=== PATIENT | female | born 1995 | race Caucasian/White ===

== ENCOUNTER 2025-03-12 18:20 | Emergency (ER) | payer BC ==
[2025-03-12] MEDS ORDERED: Sodium Chloride 0.9% 10 ML Syringe FLUSH PRN (18:53)
[2025-03-12] MEDS ORDERED: Naloxone 2 MG/2 ML Syringe IVPUSH PRN (18:57)
[2025-03-12] MEDS: HYDROmorphone 2 MG/ML Syringe IVPUSH ONE (19:08)
[2025-03-12] MEDS: Ondansetron 4 MG/2 ML SDV IVPUSH ONE (19:30)
[2025-03-12] MEDS ORDERED: Acetaminophen/HYDROcodone 325-5 MG Tab ONE (20:00)
== END 2025-03-12 20:40 | disposition home or self-care (01) ==
LOC: LB.ED 18:20
DX: R10.30 Lower abdominal pain, unspecified (principal); Z79.899 Other long term (current) drug therapy
CPT/HCPCS: 74176; 96374; 96375; 99283; 99284; A9270; J1171; J2405; 36415; 80053; 81001; 81025; 85025

== ENCOUNTER 2025-03-30 11:27 | Emergency (ER) | payer BC ==
[2025-03-30] MEDS ORDERED: Sodium Chloride 0.9% 10 ML Syringe FLUSH PRN (11:54)
[2025-03-30] MEDS: Ondansetron 4 MG/2 ML SDV IVPUSH ONE (12:02)
[2025-03-30] MEDS: Ketorolac 15 MG/ML SDV IVPUSH SCH (12:02)
[2025-03-30 12:15] LABS: BASOPHILS ABSOLUTE AUTO 0.01 K/uL (0.02-0.10); BASOPHILS PERCENT AUTO 0.1 % (0.0-0.5); EOSINOPHILS ABSOLUTE AUTO 0.11 K/uL (0.04-0.40); EOSINOPHILS PERCENT AUTO 1.6 % (1.0-5.0); LYMPHOCYTES ABSOLUTE AUTO 1.67 K/uL (1.50-4.00); LYMPHOCYTES PERCENT AUTO 24.2 % (20.0-40.0); MEAN PLATELET VOLUME 11.4 fL (6.0-10.0); MONOCYTES ABSOLUTE AUTO 0.34 K/uL (0.20-0.80); MONOCYTES PERCENT AUTO 4.9 % (3.0-10.0); NEUTROPHILS ABSOLUTE AUTO 4.77 K/uL (2.00-7.50); NEUTROPHILS PERCENT AUTO 69.2 % (45.0-70.0); PLATELET COUNT,PLT 303 K/uL (150-500); RED BLOOD CELL COUNT 4.14 M/uL (3.80-5.80); RED CELL DISTRIBUTION WIDTH 11.9 % (11.0-16.0); WHITE BLOOD CELL COUNT,WBC 6.9 K/uL (4.0-11.0)
[2025-03-30 12:21] LABS: APPEARANCE,URINE CLEAR (CLEAR); GLUCOSE,URINE NEGATIVE (NEGATIVE); OCCULT BLOOD,URINE LARGE (NEGATIVE)
[2025-03-30 12:30] LABS: SQUAMOUS EPITHELIAL CELLS,UR OCCASIONAL /HPF
[2025-03-30 12:37] LABS: A/G RATIO 1.1 (0.8-2.0); ALANINE AMINOTRANSFERASE,ALT 29.0 U/L (12-78); ASPARTATE AMNIOTRANSFERASE,AST 22.0 U/L (15-37); BILIRUBIN TOTAL 0.4 mg/dL (0.0-1.0); BLOOD UREA NITROGEN,BUN 11.0 mg/dL (8-26); CARBON DIOXIDE,CO2 27.2 mmol/L (21.0-32.0); CHLORIDE,CL 107.0 mmol/L (98-107); CREATININE 0.76 mg/dL (0.55-1.02); EST CRCL DRUG DOSING (CG) 114.14 mL/min; ESTIMATED GFR 109.0 mL/min (>60); GLUCOSE RANDOM 94.0 mg/dL (74-100); POTASSIUM,K 4.6 mmol/L (3.5-5.1); PROTEIN TOTAL,TP 6.6 g/dL (6.4-8.2); SODIUM,NA 139.0 mmol/L (136-145)
[2025-03-30] MEDS ORDERED: Ondansetron 4 MG Tab.DIS ONE (13:30)
== END 2025-03-30 13:40 | disposition home or self-care (01) ==
LOC: LB.ED 11:27
DX: N80.9 Endometriosis, unspecified (principal); N94.6 Dysmenorrhea, unspecified; Z79.899 Other long term (current) drug therapy
CPT/HCPCS: 36415; 80053; 81001; 81025; 85025; 96374; 96375; 96376; 99284; 99284-25; A9270-GY; J1885; J2270; J2405; Q0162